=== PATIENT | male | born 1965 ===

== ENCOUNTER → 2022-12-31 08:28 | Outpatient (CLI) | payer OTHER, SELFPAY ==
--- NOTE | 2022-12-31 08:34 | DI.RAD.S_ITS ---
PROCEDURE: XR KNEE RT 3V INDICATIONS: bilateral knee pain TECHNIQUE: 3 views of the knee were acquired. COMPARISON: [facility], CR, XR KNEE LT 3V, 12/31/2022, 9:06. FINDINGS: Bones: No fractures or dislocations. No suspicious bony lesions. Moderate joint space loss mass at the medial and patellofemoral compartments. Tricompartmental osteophytosis. Soft tissues: Small joint effusion. No suspicious soft tissue calcifications. 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 Dictated by: Fred Grove M.D. on 12/31/2022 at 13:13 Approved by: Fred Grove M.D. on 12/31/2022 at 13:14
--- NOTE | 2022-12-31 08:34 | DI.RAD.S_ITS ---
PROCEDURE: XR KNEE LT 3V INDICATIONS: bilateral knee pain TECHNIQUE: 3 views of the knee were acquired. COMPARISON: None. FINDINGS: Bones: No fractures or dislocations. No suspicious bony lesions. Prior ACL repair. Joint space loss most pronounced in the medial and patellofemoral compartments. Tricompartmental osteophytosis. Soft tissues: No joint effusion. No suspicious soft tissue calcifications. IMPRESSION: Severe degenerative change most pronounced in the medial and patellofemoral compartments. Prior ACL repair. Dictated by: Fred Grove M.D. on 12/31/2022 at 13:10 Approved by: Fred Grove M.D. on 12/31/2022 at 13:13
== END ==
PROVIDERS: PCP Internal Medicine; Referring Provider Physician Assistant; Visit Provider Physician Assistant
DX: M25.561 Pain in right knee (principal); M25.562 Pain in left knee; M17.11 Unilateral primary osteoarthritis, right knee
CPT/HCPCS: 73562